=== PATIENT | male | born 2000 | race Caucasian/White ===

== ENCOUNTER 2020-11-08 11:59 | Emergency (ER) | payer OTHER ==
[2020-11-08] MEDS ORDERED: Morphine 4 MG/ML Syringe ONE (12:07)
[2020-11-08] MEDS ORDERED: Sodium Chloride 0.9% 10 ML Syringe FLUSH PRN (12:07)
[2020-11-08] MEDS ORDERED: Sodium Chloride 0.9% 2.5 ML Syringe FLUSH PRN (12:07)
[2020-11-08] MEDS ORDERED: Morphine 4 MG/ML Syringe IVPUSH ONE (12:07)
[2020-11-08] MEDS ORDERED: Sodium Chloride 0.9% 10 ML SDV IV PRN (12:07)
[2020-11-08] MEDS ORDERED: Diphtheria/Tetanus Toxoids,Adult (Td) 0.5 ML Syringe IM ONE (12:07)
[2020-11-08] MEDS ORDERED: Sodium Chloride 0.9% 1,000 ML IV SCH (12:15)
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
[2020-11-08] MEDS ORDERED: Diphtheria,Pertussis(Acell),Tetanus Vaccine 0.5 ML Syringe IM ONE (13:00)
[2020-11-08] MEDS ORDERED: Iopamidol 755 MG/ML 500 ML Multipack Bottle IVPUSH STA (13:14)
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
[2020-11-08 14:05] LABS: BLOOD UREA NITROGEN,BUN 7 mg/dL (7.0-18.0); CARBON DIOXIDE,CO2 27.9 mmol/L (21.0-32.0); CHLORIDE,CL 106 mmol/L (98-107); GLUCOSE RANDOM 98 mg/dL (74-106); LIPASE 46 U/L (73-393); SODIUM,NA 142 mmol/L (136-148)
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
--- NOTE | 2020-11-08 17:09 | PCM.EKG ---
#1 Interpretation EKG Date: 11/08/20 Time: 12:47 Rhythm: NSR Rate (Beats/Min): 56 [place]: Normal P-Wave: Present QRS: RBBB ST-T: Normal QT: Normal Comparison: NA - No Prior EKG EKG Interpretation Comments: Sinus Rhythm with RBBB
== END 2020-11-08 16:05 | disposition home or self-care (01) ==
LOC: MW.ED 11:59
DX: S60.212A Contusion of left wrist, initial encounter (principal); M54.5 Low back pain; M54.6 Pain in thoracic spine; Z72.0 Tobacco use; V89.2XXA Person injured in unspecified motor-vehicle accident, traffic, initial encounter
CPT/HCPCS: 36415; 70450; 71045; 71260; 72125; 73130; 74177; 80053; 83690; 85025; 86850; 86900; 86901; 90471; 90715; 96374; 99285; J2270; J7030; 72128-26; 72131-26

== ENCOUNTER 2021-07-27 16:49 | Emergency (ER) | payer SELFPAY ==
[2021-07-27 17:45] LABS: ACETAMINOPHEN <2.0 ug/mL; BLOOD UREA NITROGEN,BUN 13 mg/dL (7.0-18.0); CARBON DIOXIDE,CO2 29.7 mmol/L (21.0-32.0); CHLORIDE,CL 102 mmol/L (98-107); GLUCOSE RANDOM 91 mg/dL (74-106); POTASSIUM,K 3.8 mmol/L (3.5-5.1); SODIUM,NA 139 mmol/L (136-148)
[2021-07-27 17:52] LABS: ESTIMATED GFR 97 mL/min (>60)
[2021-07-27] MEDS ORDERED: Nicotine 21 MG/24 Hr Patch TRDERM ONE (20:40)
== END 2021-07-27 23:20 ==
LOC: MW.ED 16:49
DX: T42.8X2A Poisoning by antiparkinsonism drugs and other central muscle-tone depressants, intentional self-harm, initial encounter (principal); Z20.822 Contact with and (suspected) exposure to COVID-19
CPT/HCPCS: 36415; 80053; 80143; 80179; 80305; 80307; 81001; 83735; 84439; 84443; 85025; 87635; 93005; 99285; A9270; U0002